=== PATIENT | male | born 1985 | race Caucasian/White ===

== ENCOUNTER 2018-05-06 23:39 | Emergency (ER) | payer SELFPAY ==
[~2018-05-06] VITALS: Ht 172.7 cm; Wt 83.9 kg
[2018-05-06 23:50] VITALS: Ht 172.7 cm; Wt 83.9 kg
[2018-05-07 00:37] VITALS: BP 118/79
== END 2018-05-07 00:37 | disposition home or self-care (01) ==
LOC: ED 23:39
DX: K40.90 Unilateral inguinal hernia, without obstruction or gangrene, not specified as recurrent (principal)